=== PATIENT | male | born 1995 | race Caucasian/White ===

== ENCOUNTER 2018-05-03 11:00 | Emergency (ER) | payer BC ==
--- NOTE | 2018-05-03 12:01 | EDPHY ---
H & P Time Seen by Provider: 05/03/18 11:54 HPI/ROS: HPI Painful urination. 22-year-old male by private vehicle. This patient has a history of kidney stones. He reports that he had flank pain consistent with his prior episodes of kidney stones about a week ago. He reports that he feels he passed the stone into his bladder but reports that several days ago he was peeing, felt like he was penis stone out and had a sudden sensation of his urine stream being block. Since this time he is able to pee but states that he has burning sensation and pain described as from the tip of his penis to his bladder. ROS: Constitutional: No fever, no chills. No weakness. Eyes: No discharge. No changes in vision. ENT: No sore throat. No nasal congestion or rhinorrhea. Respiratory: No cough. No shortness of breath. Cardiac: No chest pain, no palpitations. Gastrointestinal: No abdominal pain, no vomiting, no diarrhea. Genitourinary: No hematuria. As above. Musculoskeletal: As above. No neck pain. No myalgias or arthralgias. Skin: No rashes. Neurological: No headache. No focal weakness or altered sensation. Past medical history: Abdominal hernia with mesh. Kidney stones as noted above. Social history: He is here by himself. His primary care physician is out of town. 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 Nonsmoker. No alcohol. Physical Exam: General Appearance: Alert, no distress. This patient is responding to questions appropriately and in full sentences. This patient appears well- hydrated and well-nourished. Eyes: Pupils equal and round no pallor or injection. No lid edema, erythema or injection. Respiratory: There are no retractions, lungs are clear to auscultation with good air movement bilaterally. Cardiovascular: Regular rate and rhythm. No murmur. Gastrointestinal: Abdomen is soft and nontender, no masses, bowel sounds normal. No focal tenderness at McBurney's point. No Ovalles sign. : Normal circumcised penis. No lesions. No discharge. Testicular exam unremarkable. Normal testicular lie. No clinical evidence of torsion. Neurological: Motor sensory function is grossly intact. Cranial nerves are normal. Gait is normal. Skin: Warm and dry, no rashes. Musculoskeletal: No CVA tenderness bilaterally. Extremities are symmetrical. All joints range without pain or impingement. Psychiatric: No agitation. No depression. Database: EKG: Imaging: Procedures: Emergency department course: Triage vital signs reviewed. He is moderately hypertensive. Vital signs are otherwise normal. Urine for urinalysis obtained. Renal function will also be checked. 1:00 p.m., the patient's urinalysis is significant for some blood but otherwise is unremarkable. No evidence of infection. His renal function is normal. His electrolytes are otherwise normal. 1:30 p.m., patient re-evaluated. He appears comfortable. He asked us to place a Miller catheter but I do not feel this is emergently indicated. I discussed the reasoning of this. I will have him follow up with Urology at the [facility] which is close to where he lives for further evaluation. He is in agreement with this plan. Return to emergency department precautions have been reviewed with him. All of his questions were answered. He was discharged from the emergency department in good condition. Differential Diagnosis: The differential diagnosis on this patient includes but is not limited to urethral stone, history of recent ureteral stone. STD unlikely. This represents a partial list of diagnoses considered. These considerations are based on history, physical exam, past history, reassessment and diagnostic testing. Smoking Status: Former smoker Constitutional: Initial Vital Signs Temperature (C) 36.7 C 05/03/18 11:04 Heart Rate 87 05/03/18 11:04 Respiratory Rate 16 05/03/18 11:04 Blood Pressure 156/87 H 05/03/18 11:04 O2 Sat (%) 97 05/03/18 11:04 O2 Delivery Mode Room Air Allergies/Adverse Reactions: No Known Allergies Allergy (Unverified 05/03/18 11:03) Home Medications: Medication Instructions Recorded NK [No Known Home Meds] 05/03/18 Medical Decision Making - Data Points Laboratory Results: 05/03/18 05/03/18 05/03/18 12:21 12:10 12:10 POC Hgb 17.0 gm/dL gm/dL (13.7-17.5) POC Hct 50 % % (40-51) POC Sodium 139 mEq/L mEq/L (135-145) POC Potassium 4.0 mEq/L mEq/L (3.3-5.0) POC Chloride 103 mEq/L mEq/L (97-110) POC BUN 12 mg/dL mg/dL (7-23) POC Creatinine 0.8 mg/dL mg/dL (0.7-1.3) POC Glucose 92 mg/dL mg/dL (70-100) Urine Color YELLOW Urine Appearance CLEAR Urine pH 6.0 (5.0-7.5) Ur Specific [place] 1.009 (1.002-1.030) Urine Protein NEGATIVE (NEGATIVE) Urine Ketones NEGATIVE (NEGATIVE) Urine Blood 2+ H (NEGATIVE) Urine Nitrate NEGATIVE (NEGATIVE) Urine Bilirubin NEGATIVE (NEGATIVE) Urine Urobilinogen NEGATIVE EU EU (0.2-1.0) Ur Leukocyte Esterase NEGATIVE (NEGATIVE) Urine RBC 50-182 /hpf H /hpf (0-3) Urine WBC 1-3 /hpf /hpf (0-3) Ur Epithelial Cells NONE SEEN /lpf /lpf (NONE-1+) Urine Glucose NEGATIVE (NEGATIVE) C.trachomatis RNA (TMA) Pending N.gonorrhoeae RNA (TMA) Pending Point of Care Test Results: Chemistry 05/03/18 12:21 POC Sodium 139 mEq/L mEq/L (135-145) POC Potassium 4.0 mEq/L mEq/L (3.3-5.0) POC Chloride 103 mEq/L mEq/L (97-110) POC BUN 12 mg/dL mg/dL (7-23) POC Creatinine 0.8 mg/dL mg/dL (0.7-1.3) POC Glucose 92 mg/dL mg/dL (70-100) ISTAT H&H 05/03/18 12:21 POC Hgb 17.0 gm/dL gm/dL (13.7-17.5) POC Hct 50 % % (40-51) Departure - Departure Disposition: Home, Routine, Self-Care Clinical Impression: Dysuria, Hematuria, History of kidney stones Condition: Good Instructions: Kidney Stones (ED), Hematuria (ED) Additional Instructions: Read and follow provided instructions. Follow-up with Urology as discussed this week for re-evaluation and further management. Call her office today for appointment time. Explained this is for an emergency department follow-up. Drink lots of fluids and keep well hydrated. Return to the emergency department for worsening symptoms, worsening pain, back pain, nausea and vomiting, blood in your urine, fever or other serious concerns. Referrals: Chio Michaels MD [Medical Doctor] - As per Instructions
[2018-05-03 13:38] VITALS: BP 113/85
[2018-05-04 12:21] LABS: GC AMPLIFICATION GENPROBE NEGATIVE (NEGATIVE)
== END 2018-05-03 13:45 | disposition home or self-care (01) ==
DX: R30.9 Painful micturition, unspecified (principal); R31.9 Hematuria, unspecified; Z87.442 Personal history of urinary calculi; Z87.891 Personal history of nicotine dependence
CPT/HCPCS: 82435-PO; 82565-PO; 82947-PO; 84132-PO; 84295-PO; 84520-PO; 85014-PO

== ENCOUNTER 2018-08-05 15:52 | Emergency (ER) | payer BC ==
--- NOTE | 2018-08-05 16:32 | EDPHY ---
HPI/HX/ROS/PE/MDM Narrative: CHIEF COMPLAINT: "I think I might have broke my back" HISTORY OF PRESENT ILLNESS: This is a 22 y/o male complaining of left lower back pain secondary to a fall while snowboarding today. He landed on his left side after going off a jump. He was helmeted and denies head strike or loss of consciousness. He was able to slowly slide down the rest of the hill and his friend brought him to the ED. He denies chest pain, dyspnea, abdominal pain, pelvis pain, extremity injuries, hematuria. Moving his legs, particularly his left leg, significantly aggravates his back pain. He is typically healthy. No fever, chills, chest pain, shortness of breath, palpitations, vomiting, diarrhea, urinary complaints, headache, lightheadedness, weakness, paresthesias. REVIEW OF SYSTEMS: Aside from elements discussed in the HPI, a comprehensive 10-point review of systems was reviewed and is negative. PAST MEDICAL HISTORY: Kidney stones, abdominal mesh for hernia, shoulder surgery. SOCIAL HISTORY: Occasional cigarettes. 1 beer today. Friend at bedside. Prior medical records reviewed including ED visit 05/03/18 for dysuria. VITAL SIGNS: Reviewed by me GENERAL: Well-developed, well-nourished, sitting in wheelchair. Very uncomfortable with any movement. HEENT: Atraumatic. Eyes: No icterus, no injection. Mouth: moist mucous membranes. No erythema or lesions. Neck: Nontender to palpation. Supple with no adenopathy. LUNGS: Clear to auscultation bilaterally, no wheezes, rhonchi or rales. No thoracic tenderness to palpation. CARDIAC: Regular rate and rhythm, no rubs, murmurs or gallops. ABDOMEN: Soft, nontender, nondistended, bowel sounds normal. BACK: Tenderness along superior aspect of sacrum and lateral to L5. No CVA tenderness. No midline lumbar spine tenderness. EXTREMITIES: No trauma or deformities. No edema. Significant back pain with active ROM of legs. Otherwise range of motion is normal throughout. NEURO: Alert and oriented, grossly nonfocal. SKIN: Warm and dry, no rash. PSYCHIATRIC: Normal mentation, no agitation. Portions of this note were transcribed by a medical claims specialist. I personally performed a history, physical exam, medical decision making, and confirmed accuracy of information the transcribed note. ED Course: Healthy 22 y/o male presents with low left back pain secondary to a fall off a jump while snowboarding approximately 1 hour prior to arrival here. He has tenderness along the superior aspect of his sacrum and on the left lateral side of L5. Active ROM of legs aggravates pain. He is neurovascularly intact. Plan for IV, pain management, and lumbar and pelvis x-rays. 30mg IM Toradol ordered. Lumbar x-ray: Negative for fracture Pelvis x-ray: Negative for fracture Patient re-evaluated. He has received some relief with the Toradol but not completely pain-free. On re-examination the abdomen remained soft and nontender. Vital signs remained stable. Patient received Flexeril as well as oxycodone. Urinalysis was obtained. This was negative for blood. On re-evaluation following needs medications patient is much improved. He is able to ambulate. He feels comfortable being discharged home. He understands that if his pain should worsen or if he should develop anterior abdominal pain or blood in his urine he should be seen again. MDM: Differential diagnosis of this patient's traumatic event was considered including but not limited to intracranial injury, long bone and pelvic bone fracture, spinal injury, intrathoracic injury, extremity injury, intra- abdominal injury, lacerations, abrasions, and contusions. - Data Points Imaging Results: Lumbar Spine Xray: Findings: Lumbar alignment is anatomic. Disk spaces are well maintained. No fracture is identified. Impression: Nothing acute identified Pelvis Xray: Findings: A fracture or other acute osseous abnormality is not identified. The bone alignment is normal. Surgical clips project over the right iliac wing. Impression: Negative for fracture. Dictated By: Baljeet Castañeda MD Imaging: I viewed and interpreted images myself Medications Given: Discontinued Medications Acetaminophen (Tylenol) 1,000 mg PO EDNOW ONE Stop: 08/05/18 17:54 Last Admin: 08/05/18 18:05 Dose: 1,000 mg Cyclobenzaprine HCl (Flexeril) 10 mg PO EDNOW ONE Stop: 08/05/18 17:54 Last Admin: 08/05/18 18:05 Dose: 10 mg Ketorolac Tromethamine (Toradol) 30 mg IM EDNOW ONE Stop: 08/05/18 16:49 Last Admin: 08/05/18 17:22 Dose: 30 mg Miscellaneous Medication (Icy Hot Lidocaine/Menthol 4%/1% Patch) 1 patch TD EDNOW ONE Stop: 08/05/18 17:54 Last Admin: 08/05/18 18:06 Dose: 1 patch Oxycodone/Acetaminophen (Percocet 5/325) 1 tab PO EDNOW ONE Stop: 08/05/18 18:24 Last Admin: 08/05/18 18:55 Dose: 1 tab General Time Seen by Provider: 08/05/18 16:26 Initial Vital Signs: Initial Vital Signs Temperature (C) 36.5 C 08/05/18 16:05 Heart Rate 87 08/05/18 16:05 Respiratory Rate 16 08/05/18 16:05 Blood Pressure 136/86 H 08/05/18 16:05 O2 Sat (%) 94 08/05/18 16:05 O2 Delivery Mode Room Air Allergies/Adverse Reactions: No Known Allergies Allergy (Verified 08/05/18 16:04) Home Medications: Medication Instructions Recorded Cyclobenzaprine [Flexeril 10 MG 10 mg PO TID PRN #20 tab 08/05/18 (RX)] oxyCODONE/APAP 5/325 [Percocet 1 tab PO QID PRN #10 tab 08/05/18 5/325 (*)] Departure - Departure Disposition: Home, Routine, Self-Care Clinical Impression: Left flank pain Contusion Qualifiers: Encounter type: initial encounter Contusion area: lower back Qualified Code(s) : S30.0XXA - Contusion of lower back and pelvis, initial encounter Condition: Fair Instructions: Contusion in Adults (ED) Additional Instructions: Mainstay of therapy is rest, ice, pain meds, and gentle stretching. Apply ice for 20-30 minutes every 2-3 hours for the next 48 hours. I recommend Ibuprofen (Motrin, Advil) for pain and anti-inflammatory effects. Your dose is: Ibuprofen 600 mg every 6-8 hours with food. You may take Flexeril if needed for muscle spasm. You may take oxycodone if needed for more severe pain. Return to the emergency department or seek care urgently if you're not improving as expected in the next several days. Referrals: NONE *PRIMARY CARE P,. [Primary Care Provider] - As per Instructions Akosua Carvajal MD [[facility] [place] Primary Care Provider] - As per Instructions (Follow up with Dr. Carvajal as needed.) Prescriptions: Cyclobenzaprine [Flexeril 10 MG (RX)] 10 mg PO TID PRN #20 tab PRN Reason: Muscle Spasms oxyCODONE/APAP 5/325 [Percocet 5/325 (*)] 1 tab PO QID PRN #10 tab PRN Reason: Pain Report Scribed for: Praveena Singh Report Scribed by: Enma Vega Date of Report: 08/05/18 Time of Report: 16:28
[2018-08-05] MEDS ORDERED: KETOROLAC 30 MG/1 ML SDV IM ONE (16:48)
[2018-08-05] MEDS ORDERED: ACETAMINOPHEN 500 MG TAB PO ONE (17:53)
[2018-08-05] MEDS ORDERED: CYCLOBENZAPRINE 10 MG TAB PO ONE (17:53)
[2018-08-05] MEDS ORDERED: LIDOCAINE 4%/MENTHOL 1% PATCH TD ONE (17:53)
[2018-08-05] MEDS ORDERED: OXYCODONE/APAP 5/325 TAB PO ONE (18:23)
[2018-08-05 19:00] VITALS: BP 130/80
[2018-08-05] MEDS ORDERED: PATCH REMOVAL 1 EA PATCH TD SCH (21:00)
== END 2018-08-05 18:59 | disposition home or self-care (01) ==
DX: S30.0XXA Contusion of lower back and pelvis, initial encounter (principal); R10.9 Unspecified abdominal pain; V00.311A Fall from snowboard, initial encounter; Y93.23 Activity, snow (alpine) (downhill) skiing, snowboarding, sledding, tobogganing and snow tubing; Y92.828 Other wilderness area as the place of occurrence of the external cause; Y99.8 Other external cause status
CPT/HCPCS: J1885